=== PATIENT | female | born 1970 | race African-American/Black ===

== ENCOUNTER 2018-08-14 07:38 | Outpatient (CLI) | payer BC ==
--- NOTE | 2018-08-14 09:11 | MRI ---
LUMBAR SPINE MRI WITHOUT IV CONTRAST: HISTORY: M54.16, lumbar radiculopathy, low back pain, and right hip pain. FINDINGS: Several very tiny T2 hyperintensities within the right kidney, statistically very tiny renal cysts. Conus medullaris region is unremarkable. No abnormal marrow signal. T12-L1: Unremarkable. L1-L2: Unremarkable. L2-L3: Unremarkable. L3-L4: Unremarkable. L4-L5: Very mild desiccation change without evidence for canal, lateral recess, or foraminal stenosi s. L5-S1: A small central protrusion with probable small annular fissure. No significant associated st enosis. IMPRESSION: Small central protrusion at L5-S1 without associated significant stenosis. No other acute process. No abnormality. POS: [facility]
== END 2018-08-14 07:39 | disposition home or self-care (01) ==
LOC: TBSIIMAG 07:38
PROVIDERS: ATTEND Neurological Surgery
DX: M54.16 Radiculopathy, lumbar region (principal); M51.26 Other intervertebral disc displacement, lumbar region
CPT/HCPCS: 72148

== ENCOUNTER 2020-06-21 12:25 | Outpatient (CLI) | payer BC | END 2020-06-21 12:26 | disposition home or self-care (01) | LOC: BICULT 12:25 | PROVIDERS: ATTEND Nurse Practitioner Family | DX: S87.81XD Crushing injury of right lower leg, subsequent encounter (principal) | CPT/HCPCS: 76999 ==